=== PATIENT | female | born 1940 | race Caucasian/White ===

== ENCOUNTER 2017-09-30 08:43 | Emergency (ER) | payer MEDICAID ==
[~2017-09-30] VITALS: Ht 152.4 cm; Wt 61.0 kg
[2017-09-30 09:52] LABS: BASOPHILS % 0.8 % (0.0-2.0); EOSINOPHILS % 1.9 % (0.0-5.0); HEMATOCRIT. 42.2 % (36.0-48.0); HEMOGLOBIN. 14.3 g/dL (12.0-16.0); LYMPHOCYTES % 20.6 % (20.0-50.0); MEAN CORPUSCULAR HEMOGLOBIN 28.5 pg (28.0-32.0); MEAN CORPUSCULAR VOLUME 84.1 fL (81.0-99.0); MEAN PLATELET VOLUME 8.6 fl (7.4-10.4); NEUTROPHILS % 68.7 % (40.0-76.0); PLATELET 294 x1000/uL (130-400); RED BLOOD CELL COUNT 5.01 mill/uL (4.2-5.4); RED CELL DISTRIBUTION WIDTH 14.1 % (11.6-14.6)
[2017-09-30 10:05] LABS: PROTHROMBIN TIME 10.9 sec (9.4-11.6)
[2017-09-30 10:08] LABS: CARBON DIOXIDE 26 mEq/L (21-32); CHLORIDE 101 mEq/L (98-107); TROPONIN I < 0.02 ng/mL (0.00-0.04)
[2017-09-30] MEDS ORDERED: CEFTRIAXONE SODIUM 250 MG/VIAL IM ONE (13:15)
[2017-09-30] MEDS ORDERED: AZITHROMYCIN 500 MG TABLET PO ONE (13:15)
[2017-09-30] MEDS ORDERED: FLUCONAZOLE 100MG TABLET PO ONE (13:30)
[2017-09-30] MEDS ORDERED: LIDOCAINE HCL 1% 20ML VIAL (Pyxis) INJ INFIL ONE (13:45)
[2017-09-30] MEDS ORDERED: FLUCONAZOLE 150MG TABLET PO SCH (14:00)
[2017-09-30 14:12] VITALS: BP 180/78
== END 2017-09-30 14:52 | disposition home or self-care (01) ==
LOC: ER 08:46
DX: N72 Inflammatory disease of cervix uteri (principal); B37.9 Candidiasis, unspecified; R55 Syncope and collapse; E11.9 Type 2 diabetes mellitus without complications; K62.89 Other specified diseases of anus and rectum; R51 Headache; I10 Essential (primary) hypertension; K92.1 Melena
CPT/HCPCS: 36415; 70450; 71045; 80053; 82962; 83735; 83880; 84484; 85025; 85610; 87491; 87591; 93005; 96372; 99285; J0696; J3490

== ENCOUNTER 2020-05-22 23:16 | Emergency (ER) | payer MEDICAID ==
[~2020-05-22] VITALS: Ht 147.3 cm; Wt 64.0 kg
[2020-05-23] MEDS ORDERED: SODIUM CHLORIDE 0.9% 1,000 ML IV ONE (00:14)
[2020-05-23 00:33] LABS: BASOPHILS % 0.7 % (0.0-2.0); EOSINOPHILS % 3.8 % (0.0-5.0); HEMATOCRIT. 42.1 % (36.0-48.0); HEMOGLOBIN. 14.1 g/dL (12.0-16.0); LYMPHOCYTES % 30.2 % (20.0-50.0); MEAN CORPUSCULAR HEMOGLOBIN 28.9 pg (28.0-32.0); MEAN CORPUSCULAR VOLUME 86.2 fL (81.0-99.0); NEUTROPHILS % 57.3 % (40.0-76.0); PLATELET 208 x1000/uL (130-400); RED BLOOD CELL COUNT 4.89 mill/uL (4.2-5.4); RED CELL DISTRIBUTION WIDTH 13.8 % (11.6-14.6)
[2020-05-23 00:38] LABS: CHLORIDE 97 mEq/L (98-107)
[2020-05-23 00:46] LABS: BETA HYDROXYBUTYRATE 0.2 mMol/L (0.0-0.3)
[2020-05-23] MEDS ORDERED: INSULIN LISPRO 100 UNITS/ML SUBCUT SCH (01:15)
[2020-05-23 02:06] VITALS: BP 151/74
== END 2020-05-23 02:54 | disposition home or self-care (01) ==
LOC: ER 23:16
DX: E11.65 Type 2 diabetes mellitus with hyperglycemia (principal); E78.00 Pure hypercholesterolemia, unspecified; I10 Essential (primary) hypertension
CPT/HCPCS: 36415; 80053; 82010; 82962; 84484; 85025; 93005; 96360; 96372; 99284; J1815; J7030